=== PATIENT | female | born 2000 | race Caucasian/White ===

== ENCOUNTER 2023-12-08 15:25 | Emergency (ER) | payer OTHER, SELFPAY ==
[2023-12-08 15:29] VITALS: BP 117/76; PULSE 95; RESP 16; TEMP 36.7; O2SAT 98; BMI 17.8
--- NOTE | 2023-12-08 15:56 | ED_ITS ---
HPI - General Adult General Date Seen: 12/08/23 Chief complaint: Urogenital Problems, Female Stated complaint: Thinks IUD is coming out Time Seen by Provider: 12/08/23 15:55 Source: patient Mode of arrival: ambulatory Limitations: no limitations History of Present Illness HPI narrative: Patient is a 22-year-old young woman who had an IUD placed for the 1st time in June. She says she checks her strings occasionally, today she felt like maybe there was something sticking out of her cervix. She says she went to urgent care but they told her she had to come here. She is just finishing her period so she has had a little bit of bleeding. No abdominal pain or other complaints. She does rely on the IUD for control. Related Data Home Medications ?Medication ?Instructions ?Recorded ?Confirmed spironolactone .ROUTE 12/08/23 Allergies Allergy/AdvReac Type Severity Reaction Status Date / Time No Known Drug Allergies Allergy Verified 12/08/23 15:31 PFSH PFS Social History How often do you have a drink containing alcohol: never How often do you have six or more drinks on one occasion: Never AUDIT-C Alcohol total score: 0 Non-prescribed substance use: denies use Exam Narrative: Exam Narrative: Vital signs reviewed In general, an alert well-appearing young woman. Abdomen: Soft nontender. Pelvic: Cervix is visualized, IUD strings are visualized, appear normal in length. I do not see any other part of the IUD protruding from the cervix. One of the strings was coiled in to a closed loop, which may have been what she was feeling. Const: Vital Signs, click to edit/add: Vital Signs - 24 hr 12/08/23 15:29 Temperature 98.0 F Pulse Rate [Pulse Oximeter] 95 Respiratory Rate 16 Blood Pressure [Ri ght Upper Arm] 117/76 Pulse Oximetry 98 Oxygen Delivery Me thod Room Air Course Course ED Course: At this time, I UD seems to be appropriately placed based on strings, but discussed with her that if she would like to have the position confirm she can make an appointment with clinic and an ultrasound can be done. I do not think that needs to be done the ER today. Did recommend that she use a backup form of control until then. Return any time for abdominal pain, unusual bleeding or other concerns. Vital Signs Vital signs: Initial Vital Signs Temperature 98.0 F 12/08/23 15:29 Temperature Source Temporal Artery Scan 12/08/23 15:29 Pulse Rate 95 12/08/23 15:29 Respiratory Rate 16 12/08/23 15:29 Blood Pressure 117/76 12/08/23 15:29 Blood Pressure Mean 89 12/08/23 15:29 Blood Pressure Position Sitting 12/08/23 15:29 Pulse Oximetry 98 12/08/23 15:29 Oxygen Delivery Method Room Air 12/08/23 15:29 Vital Signs Temperature 98.0 F 12/08/23 15:29 Pulse Rate 95 12/08/23 15:29 Respiratory Rate 16 12/08/23 15:29 Blood Pressure 117/76 12/08/23 15:29 Pulse Oximetry 98 12/08/23 15:29 Oxygen Delivery Method Room Air 12/08/23 15:29 Temperature 98.0 F 12/08/23 15:29 Pulse Rate 95 12/08/23 15:29 Respiratory Rate 16 12/08/23 15:29 Blood Pressure 117/76 12/08/23 15:29 Pulse Oximetry 98 12/08/23 15:29 Oxygen Delivery Method Room Air 12/08/23 15:29 Discharge Plan Discharge Clinical Impression: Suspected condition not found Patient Disposition: Home, Self-Care Condition: Stable Additional Instructions: For definitive determination of IUD positioning, would recommend clinic follow- [facility], to schedule. I would recommend using a backup for control until then. Exam today did not show obvious extrusion of your IUD. Prescriptions: No Action spironolactone .ROUTE Stand Alone Forms: [facility] Info Instructions
== END 2023-12-08 16:18 | disposition home or self-care (01) ==
LOC: ED 16:11
PROVIDERS: Emergency Provider Emergency Medicine
DX: R44.8 Other symptoms and signs involving general sensations and perceptions (principal); Z71.1 Person with feared health complaint in whom no diagnosis is made
CPT/HCPCS: 99282; 99284